=== PATIENT | female | born 1975 | race Caucasian/White ===

== ENCOUNTER 2019-09-23 02:55 | Emergency (ER) | payer SELFPAY ==
[~2019-09-23] VITALS: Ht 167.6 cm; Wt 81.6 kg
[2019-09-23 02:59] VITALS: BP 140/83
[2019-09-23 04:02] LABS: HCG UR SG 1.023 (1.003-1.030)
[2019-09-23 04:04] LABS: CULTURE INDICATED? YES; MICROSCOPIC INDICATED
== END 2019-09-23 05:00 | disposition home or self-care (01) ==
LOC: ED 03:59
DX: J20.8 Acute bronchitis due to other specified organisms (principal); N30.00 Acute cystitis without hematuria
CPT/HCPCS: 71046; 81001; 81025; 87077; 87086; 99284